=== PATIENT | female | born 1995 | race Caucasian/White ===

== ENCOUNTER 2016-11-12 18:34 | Emergency (ER) | payer MEDICAID ==
[2016-11-12 19:38] LABS: % IMMATURE GRANULYOCYTES 0.2 % (0.0-1.1); ABSOLUTE IMMATURE GRANULOCYTES 0.02 10^3/uL (0.00-0.10); ADD DIFF? NO; ADD MORPH? NO; ADD SCAN? NO; ATYPICAL LYMPHOCYTE FLAG 30 (0-99); FRAGMENT RBC FLAG 0 (0-99); HEMATOCRIT 40.3 % (38.0-47.0); HEMOGLOBIN 13.4 g/dL (12.6-16.3); LEFT SHIFT FLG 0 (0-99); LIPEMIA HEMOLYSIS FLAG 80 (0-99); MEAN CELL HEMOGLOBIN 28.2 pg (27.9-34.1); MEAN CELL HEMOGLOBIN CONCENTR. 33.3 g/dL (32.4-36.7); MEAN CELL VOLUME 84.7 fL (81.5-99.8); MEAN PLATELET VOLUME 9.7 fL (8.7-11.7); PLATELET CLUMPS FLAG 0 (0-99); PLATELET COUNT 303 10^3/uL (150-400); RED BLOOD CELL COUNT 4.76 10^6/uL (4.18-5.33); RED CELL DISTRIBUTION WIDTH 13.6 % (11.5-15.2)
--- NOTE | 2016-11-12 19:41 | EDPHY ---
H & P Stated Complaint: Worsening abdo pain, started on Saturday. Time Seen by Provider: 11/12/16 19:25 HPI/ROS: CHIEF COMPLAINT: Abdominal pain HISTORY OF PRESENT ILLNESS: The patient is a 21 year old female presenting with lower abdominal pain that started 2 days ago. The patient first developed a sharp pain in the right upper quadrant 2 nights ago. Yesterday morning she woke up feeling nauseous. She had 1 episode of emesis. Today, the pain became more severe. It moved to her lower abdomen and radiates to her low back. She states it feels tight and crampy. Her pain is worse with movement and causes associated nausea. She also had 2 episodes of nonbloody diarrhea. The patient states she had dysuria for a few weeks, but dysuria improved about 1 week ago. Of note, the patient has taken Ranitidine in the past for reflux, but states pain today feels different. Her last normal menstrual cycle ended a few days ago. No fever, recent travel, no anorexia, no history of ovarian cysts, no abdominal surgeries. REVIEW OF SYSTEMS: Aside from elements discussed in the HPI, a comprehensive 10-point review of systems was reviewed and is negative. PAST MEDICAL HISTORY: Denies. Occasional reflux SOCIAL HISTORY: Lives in [place]. Works at [employer]. VITAL SIGNS: Reviewed by me GENERAL: Well-developed, well-nourished, resting comfortably in no respiratory distress. HEENT: Atraumatic. Eyes: No icterus, no injection. Mouth: moist mucous membranes. No erythema or lesions. Neck: supple with no adenopathy. LUNGS: Clear to auscultation bilaterally, no wheezes, rhonchi or rales. CARDIAC: Regular rate and rhythm, no rubs, murmurs or gallops. ABDOMEN: Soft, mild supraumbilical, tenderness. Mild right lower quadrant tenderness to deep palpation. No adnexal tenderness, no guarding or rebound. No distention. BACK: No CVA tenderness. EXTREMITIES: No trauma. No edema. Range of motion is normal throughout. NEURO: Alert and oriented, grossly nonfocal. SKIN: Warm and dry, no rash. PSYCHIATRIC: Normal mentation, no agitation. Portions of this note were transcribed by a medical transcription radiology. I personally performed a history, physical exam, medical decision making, and confirmed accuracy of information the transcribed note. Source: Patient - Personal History LMP (Females 10-55): 1-7 Days Ago Current Tetanus Diphtheria and Acellular Pertussis (TDAP): Unsure - Medical/Surgical History Hx Asthma: No Hx Chronic Respiratory Disease: No Hx Diabetes: No Hx Cardiac Disease: No Hx Renal Disease: No Hx Cirrhosis: No Hx Alcoholism: No Hx HIV/AIDS: No Hx Splenectomy or Spleen Trauma: No Other PMH: Denies - Social History Smoking Status: Never smoked Constitutional: Initial Vital Signs Temperature (C) 36.7 C 11/12/16 18:37 Heart Rate 86 11/12/16 18:37 Respiratory Rate 16 11/12/16 18:37 Blood Pressure 125/86 H 11/12/16 18:37 O2 Sat (%) 97 11/12/16 18:37 O2 Delivery Mode Room Air Allergies/Adverse Reactions: No Known Allergies Allergy (Unverified 11/12/16 18:42) Home Medications: Medication Instructions Recorded Ibuprofen 11/12/16 Medical Decision Making - Diagnostics Imaging: Results: CT scan of the abdomen/pelvis was obtained. I viewed the images independently on the PACS system. I discussed the results of the study with the radiologist. Impression: 1. Constipation. 2. Indeterminate 1.6 cm hypodensity in the spleen that could represent a complex cyst. 3. Severely atrophic left kidney. 4. Appendicolith in an otherwise normal appendix.. Please see the full radiology report. ED Course/Re-evaluation: IV was established, patient received 1L normal saline. CBC, CHEM, and UA were ordered. Labs reassuring. ON reassessment, still with mild, vague pain worse in lower quadrants. CT ordered. No appendicitis, atrophic left kidney, splenic cyst. Discussed results with patient. Advised of atrophic kidney and importance of follow up and further evaluation. Recommended miralax for constipation. Patient looks well. In agreement with plan Differential Diagnosis: The differential diagnosis for the patient's abdominal pain was considered including but not limited to ovarian cyst, pelvic inflammatory disease, ovarian torsion, urinary tract infection, related complications, and appendicitis. - Data Points Laboratory Results: Laboratory Results 11/12/16 19:28 11/12/16 19:28 Medications Given: Discontinued Medications Sodium Chloride (Ns) 1,000 mls @ 0 mls/hr IV ONCE ONE PRN Reason: Wide Open Stop: 11/12/16 19:46 Last Admin: 11/12/16 19:45 Dose: 1,000 mls Departure - Departure Disposition: Home, Routine, Self-Care Clinical Impression: Constipation Qualifiers: Constipation type: other constipation type Qualified Code(s): K59.09 - Other constipation Abdominal pain Qualifiers: Abdominal location: lower abdomen, unspecified Qualified Code(s): R10.30 - Lower abdominal pain, unspecified Condition: Good Instructions: Constipation (ED), Abdominal Pain (ED) Additional Instructions: 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 Take as directed. Drink plenty of fluids. You have been referred to a primary care physician. Please call tomorrow to schedule a followup appointment to discuss atrophic left kidney. Referrals: Kee Huerta MD [Medical Doctor] - As per Instructions Report Scribed for: Cady Candelario Report Scribed by: Juanita Lou Date of Report: 11/12/16 Time of Report: 19:42
[2016-11-12] MEDS ORDERED: NS 1,000 ML IV ONE (19:45)
[2016-11-12 19:49] LABS: ANION GAP 11 mEq/L (8-16); CALCIUM 9.1 mg/dL (8.5-10.4); CARBON DIOXIDE 21 mEq/l (22-31); CHLORIDE 106 mEq/L (97-110); CREATININE 0.9 mg/dL (0.6-1.0); GLOMERULAR FILTRATION RATE > 60; GLUCOSE 86 mg/dL (70-100); POTASSIUM 4.1 mEq/L (3.5-5.2); SODIUM 138 mEq/L (134-144)
[2016-11-12 20:11] LABS: COLOR YELLOW; LEUKOCYTE ESTERASE,URINE 1+ (NEGATIVE); NITRITE,URINE NEGATIVE (NEGATIVE)
[2016-11-12 20:18] LABS: MUCUS TRACE /lpf (NONE-1+); WBC,URINE 15-25 /hpf (0-3)
[2016-11-12 20:20] LABS: ALBUMIN 4.2 g/dL (3.5-5.0); BILIRUBIN,TOTAL 0.4 mg/dL (0.1-1.4); BILIRUBIN-CONJUGATED 0.3 mg/dL (0.0-0.5); BILIRUBIN-UNCONJUGATED 0.1 mg/dL (0.0-1.1); TOTAL PROTEIN 7.1 g/dL (6.3-8.2)
[2016-11-12] MEDS ORDERED: IOPAMIDOL (ISOVUE-300) 100 ML BTL IV ONE (21:18)
[2016-11-12 21:46] VITALS: RESP 20; TEMP 98.2; O2SAT 94
[2016-11-12 22:52] VITALS: BP 127/80; PULSE 75
== END 2016-11-12 22:52 | disposition home or self-care (01) ==
DX: K59.09 Other constipation (principal)
CPT/HCPCS: Q9967